=== PATIENT | female | born 1960 | race Caucasian/White ===

== ENCOUNTER 2022-04-25 09:20 | Outpatient (CLI) | payer BC | END 2022-04-25 09:21 | disposition home or self-care (01) | LOC: BICMAMMO 09:20 | PROVIDERS: ATTEND Internal Medicine Rheumatology | DX: M81.0 Age-related osteoporosis without current pathological fracture (principal) | CPT/HCPCS: 72070 ==

== ENCOUNTER 2023-07-06 11:51 | Outpatient (CLI) | payer BC | END 2023-07-06 11:52 | disposition home or self-care (01) | LOC: BICMAMMO 11:51 | PROVIDERS: ATTEND Internal Medicine Rheumatology | DX: M81.0 Age-related osteoporosis without current pathological fracture (principal) | CPT/HCPCS: 77080 ==

== ENCOUNTER 2024-06-04 08:12 | Outpatient (CLI) | payer BC | END 2024-06-04 08:13 | disposition home or self-care (01) | LOC: SCSMRI 08:12 | DX: M54.2 Cervicalgia (principal); M47.812 Spondylosis without myelopathy or radiculopathy, cervical region; R60.9 Edema, unspecified | CPT/HCPCS: 72141 ==